=== PATIENT | female | born 1995 | race Caucasian/White ===

== ENCOUNTER 2017-10-15 16:09 | Emergency (ER) | payer MEDICAID ==
[2017-10-15 16:45] VITALS: BP 132/76
--- NOTE | 2017-10-15 16:53 | EDM.PDOC ---
ED HPI GENERAL MEDICAL PROBLEM - General Chief Complaint: ENT Problem Stated Complaint: SORE THROAT, EAR PAIN, HEADACHE Time Seen by Provider: 10/15/17 16:38 - History of Present Illness INITIAL COMMENTS - FREE TEXT/NARRATIVE: HISTORY AND PHYSICAL: History of present illness: The patient is a healthy 21-year-old female who presents for evaluation of several days of a sore throat and pain with swallowing and speaking. Patient has not had a fever runny nose cough congestion abdominal pain vomiting or diarrhea but says that her left ear is starting to hurt and she has a slight headache which both started after the sore throat. She is able to eat or drink but there is some discomfort with it. The patient is being seen here in the emergency department with her 7-month-old child who is here with nasal congestion. She did not get her flu shot this year and has no local provider Review of systems: As per history of present illness and below otherwise all systems reviewed and negative. Past medical history: As per history of present illness and as reviewed below otherwise noncontributory. Surgical history: As per history of present illness and as reviewed below otherwise noncontributory. Social history: No reported history of drug or alcohol abuse. Family history: As per history of present illness and as reviewed below otherwise noncontributory. Physical exam: Gen.: Well-developed well-nourished female who is nontoxic and speaking clearly without breathlessness nasal quality to voice or hoarseness. Vital signs have been reviewed by me HEENT: Atraumatic, normocephalic, pupils reactive, negative for conjunctival pallor or scleral icterus, mucous membranes moist, throat clear of exudates and there is posterior oropharyngeal erythema, uvula is midline, neck supple, nontender, trachea midline. TMs are dulled bilaterally but there is no bulging or erythema appreciated, there is no cervical adenopathy or nuchal rigidity and no sinus tenderness Lungs: Clear to auscultation, breath sounds equal bilaterally, chest nontender. Heart: S1S2, regular rate and rhythm no overt murmurs Abdomen: Soft, nondistended, nontender. NABS Pelvis: Deferred Genitourinary: Deferred. Rectal: Deferred. Extremities: Atraumatic, negative for cords or calf pain. Neurovascular unremarkable. Neuro: Awake, alert, oriented. Cranial nerves II through XII unremarkable. Cerebellum unremarkable. Motor and sensory unremarkable throughout. Exam nonfocal. Diagnostics: Rapid strep influenza Therapeutics: [] Impression: Viral pharyngitis Definitive disposition and diagnosis as appropriate pending reevaluation and review of above. 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 ED EXAM, GENERAL - Physical Exam Exam: See Below (See dictation) Course - Vital Signs Last Recorded V/S: Last Vital Signs Temp 36.9 C 10/15/17 16:43 Pulse 93 10/15/17 16:43 Resp BP 132/76 10/15/17 16:43 Pulse Ox 97 10/15/17 16:43 - Orders/Labs/Meds Orders: Active Orders 24 hr Category Date Time Status CULTURE STREP A CONFIRMATION [RM] Stat Lab 10/15/17 18:25 Results STREP SCRN A RAPID W CULT CONF [RM] Stat Lab 10/15/17 18:25 Results Departure - Departure Time of Disposition: 18:47 Disposition: Home, Self-Care 01 Condition: Good Clinical Impression: Viral pharyngitis - Discharge Information Referrals: PCP,Unknown [Primary Care Provider] - Forms: ED Department Discharge Additional Instructions: The following information is given to patients seen in the emergency department who are being discharged to home. This information is to outline your options for follow-up care. We provide all patients seen in our emergency department with a follow-up referral. The need for follow-up, as well as the timing and circumstances, are variable depending upon the specifics of your emergency department visit. If you don't have a primary care physician on staff, we will provide you with a referral. We always advise you to contact your personal physician following an emergency department visit to inform them of the circumstance of the visit and for follow-up with them and/or the need for any referrals to a consulting specialist. The emergency department will also refer you to a specialist when appropriate. This referral assures that you have the opportunity for followup care with a specialist. All of these measure are taken in an effort to provide you with optimal care, which includes your followup. Under all circumstances we always encourage you to contact your private physician who remains a resource for coordinating your care. When calling for followup care, please make the office aware that this follow-up is from your recent emergency room visit. If for any reason you are refused follow-up, please contact the [facility] emergency department at and ask to speak to the emergency department charge nurse. [facility] Primary care- Internal [place] [address] Push hydration and rest. Use [id number] Tylenol or ibuprofen for fever and pain. Please contact your provider or one of our clinic providers for further care and evaluation the next 2 days and return to ER as needed and as discussed - My Orders Last 24 Hours: My Active Orders 10/15/17 18:25 CULTURE STREP A CONFIRMATION [RM] Stat STREP SCRN A RAPID W CULT CONF [RM] Stat - Assessment/Plan Last 24 Hours: My Active Orders 10/15/17 18:25 CULTURE STREP A CONFIRMATION [RM] Stat STREP SCRN A RAPID W CULT CONF [RM] Stat
== END 2017-10-15 18:59 | disposition home or self-care (01) ==
LOC: MW.ED 16:09
DX: J02.9 Acute pharyngitis, unspecified (principal); Z88.6 Allergy status to analgesic agent
CPT/HCPCS: 87081; 87804; 87880; 99283

== ENCOUNTER 2018-02-23 20:16 | Emergency (ER) | payer MEDICAID ==
--- NOTE | 2018-02-23 20:31 | EDM.PDOC ---
ED HPI GENERAL MEDICAL PROBLEM - General Chief Complaint: Genitourinary Problem Stated Complaint: PAIN IN HER ABDOMEN ESPECIALLY ON THE LEFT SIDE Time Seen by Provider: 02/23/18 20:24 Source of Information: Reports: Patient History Limitations: Reports: No Limitations - History of Present Illness INITIAL COMMENTS - FREE TEXT/NARRATIVE: HISTORY AND PHYSICAL: History of present illness: Patient is a 22-year-old female who presents to the emergency room today with complaints of left sided pelvic pain and dysuria over the past several days. She states that she has had some dysuria and intermittent round discharge. She is concerned she might have a UTI or possibly an STD. She has been sexually active and currently does not take any form of control. States she has had 2 small episodes of breakthrough vaginal bleeding within this last month. Review of systems: As per history of present illness and below otherwise all systems reviewed and negative. Past medical history: As per history of present illness and as reviewed below otherwise noncontributory. Surgical history: As per history of present illness and as reviewed below otherwise noncontributory. Social history: No reported history of drug or alcohol abuse. Family history: As per history of present illness and as reviewed below otherwise noncontributory. Physical exam: General: Well developed and well-nourished 22-year-old female. Alert and oriented. Nontoxic appearing and in no acute distress. HEENT: Atraumatic, normocephalic, pupils equal and reactive bilaterally, negative for conjunctival pallor or scleral icterus, mucous membranes moist, throat clear, neck supple, nontender, trachea midline. No drooling or trismus noted. No meningeal signs Lungs: Clear to auscultation, breath sounds equal bilaterally, chest nontender. Heart: S1S2, regular rate and rhythm without overt murmur Abdomen: Soft, nondistended, nontender. Negative for masses or hepatosplenomegaly. Negative for costovertebral tenderness. Pelvis: Stable nontender. Genitourinary: This was done with a reuse technician at the bedside. External genitalia appears within normal limits. Speculum exam was completed with swabs which were sent to lab. Cervix is closed. No discharge noted. Patient tolerated procedure well. No adnexal tenderness with palpation. Rectal: Deferred. Skin: Intact, warm, dry. No lesions or rashes noted. Extremities: Atraumatic, negative for cords or calf pain. Neurovascular unremarkable. Neuro: Awake, alert, oriented. Cranial nerves II through XII unremarkable. Cerebellum unremarkable. Motor and sensory unremarkable throughout. Exam nonfocal. Notes: Patient is requesting STD testing. A pelvic same was done with a reuse technician at the bedside. Patient tolerated well. Samples were sent to lab. She is aware that some of these are a send out and have to take a couple days to receive these Diagnostics: UA, gonorrhea and chlamydia, Gardnerella/Trichomonas/Candidias Therapeutics: Rocephin, azithromycin Impression: Dysuria STD screening Plan: 1. The urine was negative for a UTI. Other labs are pending and we will call you with those results if they do return positive. 2. Rocephin and azithromycin have been given to you prophylactically. These are the medications to treat gonorrhea and chlamydia. Please practice safe sex until you have your STD results (otherwise will re-infect if they are positive). 3. Please follow-up with your primary caregiver in the next 1-2 days. Return to the ED as needed and as discussed. Definitive disposition and diagnosis as appropriate pending reevaluation and review of above. Duration: Day(s): Location: Reports: Abdomen LUQ abdomen Pain Score (Numeric/FACES): 5 - Related Data Allergies Allergy/AdvReac Type Severity Reaction Status Date / Time aspirin Allergy Rash Verified 02/23/18 20:30 Home Meds: Home Meds . 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 ED EXAM, RENAL/ - Physical Exam Exam: See Below (See dictation) Course - Vital Signs Last Recorded V/S: Last Vital Signs Temp 98.2 F 02/23/18 20:16 Pulse 90 02/23/18 20:16 Resp 18 02/23/18 20:16 BP 142/93 H 02/23/18 20:16 Pulse Ox 97 02/23/18 20:16 - Orders/Labs/Meds Orders: Active Orders 24 hr Category Date Time Status CHLAMYDIA AND GONORRHEA BY TMA Stat Lab 02/23/18 20:40 Received HCG QUALITATIVE,URINE [URCHEM] Stat Lab 02/23/18 20:30 Ordered UA W/MICROSCOPIC [URIN] Stat Lab 02/23/18 20:30 Ordered Labs: Laboratory Tests 02/23/18 02/23/18 02/23/18 Range/Units 20:30 20:30 20:40 Urine Color YELLOW Urine Appearance CLEAR Urine pH 5.5 (5.0-8.0) Ur Specific [place] <= 1.005 (1.001-1.035) Urine Protein NEGATIVE (NEGATIVE) mg/dL Urine Glucose (UA) NEGATIVE (NEGATIVE) mg/dL Urine Ketones NEGATIVE (NEGATIVE) mg/dL Urine Occult Blood NEGATIVE (NEGATIVE) Urine Nitrite NEGATIVE (NEGATIVE) Urine Bilirubin NEGATIVE (NEGATIVE) Urine Urobilinogen 0.2 (<2.0) EU/dL Ur Leukocyte Esterase TRACE (NEGATIVE) Urine RBC NONE SEEN (0-2/HPF) Urine WBC 0-1 (0-5/HPF) Ur Epithelial Cells FEW (NONE-FEW) Urine Bacteria RARE (NEGATIVE) Urine Mucus LIGHT (NONE-MOD) Urine HCG, Qual NEGATIVE (NEGATIVE) Isabelle species DNA NEGATIVE (NEGATIVE) Gardnerella DNA Probe NEGATIVE (NEGATIVE) Trichomonas DNA Probe NEGATIVE (NEGATIVE) Meds: Medications Discontinued Medications Generic Name Dose Route Start Last Admin Trade Name Freq PRN Reason Stop Dose Admin Azithromycin 1,000 mg 02/23/18 21:33 Zithromax PO 02/23/18 21:34 NOW STA Ceftriaxone Sodium 250 mg/ 1 mls @ 1 mls/sec 02/23/18 21:33 Lidocaine HCl IM 02/23/18 21:34 ONETIME ONE Departure - Departure Time of Disposition: 21:35 Disposition: Home, Self-Care 01 Clinical Impression: Dysuria, Screening for STD (sexually transmitted disease) - Discharge Information Instructions: Dysuria Referrals: Crystal Castelan [Primary Care Provider] - Forms: ED Department Discharge Additional Instructions: The following information is given to patients seen in the emergency department who are being discharged to home. This information is to outline your options for follow-up care. We provide all patients seen in our emergency department with a follow-up referral. The need for follow-up, as well as the timing and circumstances, are variable depending upon the specifics of your emergency department visit. If you don't have a primary care physician on staff, we will provide you with a referral. We always advise you to contact your personal physician following an emergency department visit to inform them of the circumstance of the visit and for follow-up with them and/or the need for any referrals to a consulting specialist. The emergency department will also refer you to a specialist when appropriate. This referral assures that you have the opportunity for follow-up care with a specialist. All of these measure are taken in an effort to provide you with optimal care, which includes your follow-up. Under all circumstances we always encourage you to contact your private physician who remains a resource for coordinating your care. When calling for follow-up care, please make the office aware that this follow-up is from your recent emergency room visit. If for any reason you are refused follow-up, please contact the [facility] Emergency Department at and asked to speak to the emergency department charge nurse. [facility] Primary Care [address] [place] [id number] 1. The urine was negative for a UTI. Other labs are pending and we will call you with those results if they do return positive. 2. Rocephin and azithromycin have been given to you prophylactically. These are the medications to treat gonorrhea and chlamydia. Please practice safe sex until you have your STD results (otherwise will re-infect if they are positive). 3. Please follow-up with your primary caregiver in the next 1-2 days. Return to the ED as needed and as discussed. - My Orders Last 24 Hours: My Active Orders 02/23/18 20:30 HCG QUALITATIVE,URINE [URCHEM] Stat UA W/MICROSCOPIC [URIN] Stat 02/23/18 20:40 CHLAMYDIA AND GONORRHEA BY TMA Stat - Assessment/Plan Last 24 Hours: My Active Orders 02/23/18 20:30 HCG QUALITATIVE,URINE [URCHEM] Stat UA W/MICROSCOPIC [URIN] Stat 02/23/18 20:40 CHLAMYDIA AND GONORRHEA BY TMA Stat
[2018-02-23] MEDS ORDERED: Azithromycin 250 MG Tab PO STA (21:33)
[2018-02-23] MEDS ORDERED: cefTRIAXone 250 MG in Lidocaine 1% 1 ML IM ONE (21:33)
[2018-02-23 21:44] VITALS: BP 137/87
== END 2018-02-23 21:55 | disposition home or self-care (01) ==
LOC: MW.ED 20:16
DX: Z11.3 Encounter for screening for infections with a predominantly sexual mode of transmission (principal); R30.0 Dysuria; Z88.6 Allergy status to analgesic agent
CPT/HCPCS: 81001; 81025; 87480; 87491; 87510; 87591; 87660; 96372; 99283; A9270; J0696; J2001

== ENCOUNTER 2018-03-03 18:09 | Emergency (ER) | payer MEDICAID ==
[2018-03-03] MEDS ORDERED: diphenhydrAMINE 50 MG Cap PO ONE (18:47)
--- NOTE | 2018-03-03 19:08 | EDM.PDOC ---
ED HPI GENERAL MEDICAL PROBLEM - General Chief Complaint: Allergic Reaction Stated Complaint: ALLERGIC REACTION/HIVES Time Seen by Provider: 03/03/18 18:30 Source of Information: Reports: Patient History Limitations: Reports: No Limitations - History of Present Illness INITIAL COMMENTS - FREE TEXT/NARRATIVE: Patient presents stating that she has a migraine headache and took Excedrin headache not realizing it contained aspirin. She states she is allergic to aspirin and now she is having a reaction. She states that her face is itchy and her throat is a little itchy and she has hives. - Related Data Allergies Allergy/AdvReac Type Severity Reaction Status Date / Time aspirin Allergy Rash Verified 03/03/18 18:17 Home Meds: Home Meds . 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 ED EXAM GENERAL NO PERIP PULSE - Physical Exam Exam: See Below Exam Limited By: No Limitations General Appearance: Alert, No Apparent Distress Ears: Normal External Exam, Normal TMs Nose: Normal Inspection Throat/Mouth: Normal Inspection, Normal Oropharynx, No Airway Compromise. No: Inflammation Neck: Normal Inspection. No: Lymphadenopathy (L), Lymphadenopathy (R) Respiratory/Chest: No Respiratory Distress, Lungs Clear, Normal Breath Sounds. No: Wheezing Cardiovascular: Regular Rate, Rhythm, No Murmur GI/Abdominal: Soft Extremities: Normal Inspection Neurological: Alert, Oriented, Normal Cognition Psychiatric: Normal Affect, Normal Mood Skin Exam: Warm, Dry, Intact, Normal Color, No Rash, Other (I checked her back, abdomen, chest, extremities face and neck and did not see any sign of rash or hives anywhere) Course - Vital Signs Last Recorded V/S: Last Vital Signs Temp 36.4 C 03/03/18 18:17 Pulse 66 03/03/18 18:17 Resp 18 03/03/18 18:17 BP 135/90 03/03/18 18:17 Pulse Ox 98 03/03/18 18:17 Departure - Departure Time of Disposition: 19:09 Disposition: Home, Self-Care 01 Clinical Impression: Allergic reaction caused by a drug - Discharge Information Referrals: Nighat Frances MD [Primary Care Provider] - Additional Instructions: 1. Avoid Aspirin and Aspirin-containing products. 2. Benadryl 50mg before bedtime as needed for itching. Zyrtec or Anne daily for next 3 days. 3. Return promptly for breathing problems, wheezing, facial or mouth swelling.
[2018-03-03 20:08] VITALS: BP 125/80
== END 2018-03-03 19:30 | disposition home or self-care (01) ==
LOC: MW.ED 18:09
DX: L50.0 Allergic urticaria (principal); T39.015A Adverse effect of aspirin, initial encounter; G43.909 Migraine, unspecified, not intractable, without status migrainosus; Z88.6 Allergy status to analgesic agent
CPT/HCPCS: 99283; A9270; 99281